=== PATIENT | female | born 1960 | race Caucasian/White ===

== ENCOUNTER 2016-09-03 16:59 | Emergency (ER) | payer SELFPAY ==
[2016-09-03 17:10] VITALS: O2SAT 94
--- NOTE | 2016-09-03 17:23 | ERPHSYRPT ---
- History of Present Illness Time Seen by Provider: 09/03/16 17:00 Source: patient Exam Limitations: no limitations Patient Subjective Stated Complaint: PT CO COUGH,PRODUCTIVE GREEN AT TIMES SINCE MAY OF LAST YEAR, FEVER OFF AND ON , SOB WITH EXCERITION Triage Nursing Assessment: PT ALERT,SKIN W/D PALE, RESP EASY, CONGESTED SOUNDING COUGH, Physician History: patietn with cough and hx of bronchitis for years; intermittant producton green ; fever low grade x 3 days; no sore throat; no cp or hemoptosis; no sob; no travel or known exposures; continues to smoke Timing/Duration: yesterday (fever), week(s) (cough), gradual onset, worse Fever Severity: moderate Fever Therapy [employer]GER: none Associated Symptoms: cough International travel in last 2 weeks: No Allergies/Adverse Reactions: Penicillins Allergy (Mild, Unverified 03/29/13 14:21) Home Medications: Albuterol Sulfate [Proair Hfa] 8.5 gm DAILY 09/03/16 [History] Hx Tetanus, Diphtheria Vaccination/Date Given: Yes (UNKNOWN) Hx Influenza Vaccination/Date Given: No Hx Pneumococcal Vaccination/Date Given: No Immunizations Up to Date: Yes - Review of Systems Constitutional: Fever, Malaise, No Weakness, No Weight Loss Eyes: No Symptoms Ears, Nose, & Throat: Tinnitus, No Ear Pain, No Ear Discharge, No Nose Congestion, No Sinus Drainage, No Throat Pain, No Hoarse, No Painful Swallowing Respiratory: Cough, No Cyanosis, No Dyspnea, No Dyspnea on Exertion (MCKAY), No Wheezing Cardiac: No Chest Pain, No Palpitations, No Syncope Abdominal/Gastrointestinal: No Abdominal Pain, No Nausea, No Vomiting, No Diarrhea Genitourinary Symptoms: No Symptoms Musculoskeletal: No Symptoms Skin: No Symptoms Neurological: No Symptoms Psychological: No Symptoms Endocrine: No Symptoms Hematologic/Lymphatic: No Symptoms Immunological/Allergic: No Symptoms - Past Medical History Pertinent Past Medical History: Yes Respiratory History: Bronchitis Other Medical History: recurrent bronchitis - Past Surgical History Past Surgical History: Yes Musculoskeletal: Other Female Surgical History: Tubal Ligation - Social History Smoking Status: Current every day smoker How long have you smoked: 30 Exposure to second hand smoke: Yes Alcohol Use: None Drug Use: none Patient Lives Alone: No Significant Family History: no pertinent family hx - Female History Hx Last Menstrual Period: POST Hx Now: No - Nursing Vital Signs Nursing Vital Signs: Initial Vital Signs Temperature 97.4 F Temperature Source Oral Pulse Rate 106 Respiratory Rate 18 Blood Pressure [Right Arm] 102/78 Pain Intensity 0 - Physical Exam General Appearance: mild distress, alert, thin Eye Exam: PERRL/EOMI, eyes nml inspection, No photophobia ENT Exam: normal ENT inspection, no apparent trauma, hearing grossly normal, TMs normal, pharynx normal Neck Exam: normal inspection, non-tender, supple, full range of motion, trachea midline, No JVD, No lymphadenopathy (R), No lymphadenopathy (L) Respiratory Exam: chest non-tender, lungs clear, no respiratory distress, no accessory muscle use, decreased breath sounds, No normal breath sounds, No respiratory distress, No crackles/rales, No rhonchi, No stridor, No wheezing, No pleural rub Cardiovascular/Chest Exam: normal heart sounds, regular rate/rhythm, murmur, normal peripheral pulses, tachycardia (106), No edema, No JVD Gastrointestinal/Abdominal Exam: soft, non tender, no mass, no organomegaly, normal bowel sounds Pelvic Exam: deferred Rectal Exam: deferred Extremity Exam: non-tender, normal range of motion, normal inspection, No no pedal edema, No calf tenderness, No eva's sign Neurologic Exam: alert, oriented x 3, cooperative, 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, normal mood/affect, nml cerebellar function, nml station & gait, sensation nml Skin Exam: normal color, warm, dry, No rash SpO2 Interpretation: normal SpO2: 94 Oxygen Delivery: Room Air - Course Nursing assessment & vital signs reviewed: Yes - Radiology Exams Chest X-ray Interpretation: Interpreted by me, No Pneumonia, No Pneumothorax, Nml Heart Size, No Infiltrates, Other (COPD) Ordered Tests: Active Orders 24 hr Category Date Time Status Pulse Oximetry (ED) STAT Care 09/03/16 17:18 Active CHEST 1 VIEW (PORTABLE) Stat Exams 09/03/16 17:18 Taken CBC W DIFF Stat Lab 09/03/16 17:43 Completed Lab/Rad Data: Laboratory Result Diagrams 09/03/16 17:43 Laboratory Results 09/03/16 Range/Units 17:43 WBC 12.3 H (4.0-10.5) K/mm3 RBC 4.45 (4.1-5.4) M/mm3 Hgb 13.6 (12.0-16.0) gm/dl Hct 41.2 (35-47) % MCV 92.6 (78-100) fl MCH 30.6 (26-32) pg MCHC 33.0 (32-36) g/dl RDW 12.8 (11.5-14.0) % Plt Count 320 (150-450) K/mm3 MPV 9.7 H (6-9.5) fl Gran % 76.7 H (36.0-66.0) % Lymphocytes % 11.8 L (24.0-44.0) % Monocytes % 10.0 (0.0-12.0) % Eosinophils % 1.3 (0.00-5.0) % Basophils % 0.2 (0.0-0.4) % Basophils # 0.02 (0-0.4) reviewed - Progress Progress: re-examined Progress Note: 09/03/16 17:23 cxr and lab pending; will recheck 09/03/16 18:23 recheck; results and tereatment plan discussed; instructions given Counseled pt/family regarding: lab results, diagnosis, need for follow-up, rad results, smoking cessation - Departure Time of Disposition: 18:23 Departure Disposition: Home Clinical Impression: Acute bronchitis Condition: Stable Critical Care Time: No Instructions: Cough -- Adult Additional Instructions: Follow-up with family doctor as directed. Call for appointment. Return if any problems. If you smoke please stop. Call or follow up with your family doctor for assistance if you need it to stop. Please wear your seatbelt when driving. Have a nice day. Thank you for allowing us to participate in your care today. :o) Dr Gilles Moreno Prescriptions: Sulfamethoxazole/Trimethoprim [Bactrim 400-80 mg Tablet] 1 each PO BID #20 tablet
[2016-09-03 17:44] LABS: BASOPHIL % 0.2 % (0.0-0.4); Eosinophil % 1.3 % (0.00-5.0); Granulocytes % 76.7 % (36.0-66.0); Lymphocytes % 11.8 % (24.0-44.0); Mean Cell Volume 92.6 fl (78-100); Mean Corpuscular Hemoglobin 30.6 pg (26-32); Mean Platelet Volume 9.7 fl (6-9.5); Platelet Count 320 K/mm3 (150-450); Red Blood Count 4.45 M/mm3 (4.1-5.4); Red Cell Distribution Width 12.8 % (11.5-14.0); White Blood Count 12.3 K/mm3 (4.0-10.5)
[2016-09-03 18:30] VITALS: BP 121/91; PULSE 100
--- NOTE | 2016-09-04 08:41 | XRAY ---
Indication: Productive cough. Comparison: August 23, 2012 Portable chest remains hyperinflated and clear. Heart and mediastinal structures stable and within normal limits. Bony thorax intact. Impression: Stable nonacute hyperinflated chest.
== END 2016-09-03 18:30 | disposition home or self-care (01) ==
LOC: ED 16:59
DX: J20.9 Acute bronchitis, unspecified (principal); J44.9 Chronic obstructive pulmonary disease, unspecified
CPT/HCPCS: 36415; 71010; 85025; 99283; 99284; 99285

== ENCOUNTER 2017-07-18 00:54 | Emergency (ER) | payer SELFPAY ==
[2017-07-18] MEDS ORDERED: DELTASONE 20 MG PO ONE (01:18)
[2017-07-18] MEDS ORDERED: DUONEB 0.5-3 MG/3 ml Neb IH ONE ×2 (01:18→01:21)
[2017-07-18] MEDS ORDERED: Vibramycin 100 MG PO ONE (01:18)
[2017-07-18] MEDS ORDERED: DELTASONE 20 MG ONE (01:22)
[2017-07-18] MEDS ORDERED: Vibramycin 100 MG ONE (01:22)
--- NOTE | 2017-07-18 01:22 | ERPHSYRPT ---
- History of Present Illness Time Seen by Provider: 07/18/17 01:10 Source: patient Exam Limitations: no limitations Patient Subjective Stated Complaint: cough and exertional SOB x 2 weeks.. hx bronchitis Triage Nursing Assessment: alert and oreiented. slight SOB after walking to room. slight wheeze ausclutated on expiration to right upper. cough non productive. denies fever, swelling. denies CP Physician History: 57 y/o female comes to the ER with complaints of cough, wheezing and mild shortness of breath for the last couple of days. Pt has used albuterol inhaler with no relief. Pt has had many episodes of bronchitis in the past. Pt denies any fever, chills, chest pain, dizziness or palpitations. Pt admits to still smoking. Timing/Duration: yesterday Cough Quality/Degree: moderate, dry cough Possible Cause: frequent episodes Allergies/Adverse Reactions: Penicillins Allergy (Mild, Verified 07/18/17 01:19) Hx Tetanus, Diphtheria Vaccination/Date Given: Yes (UNKNOWN) Hx Influenza Vaccination/Date Given: No Hx Pneumococcal Vaccination/Date Given: No Immunizations Up to Date: Yes - Review of Systems Constitutional: No Fever, No Chills Eyes: No Symptoms Ears, Nose, & Throat: No Symptoms Respiratory: Cough, Dyspnea, Wheezing Cardiac: No Chest Pain, No Edema, No Syncope Abdominal/Gastrointestinal: No Abdominal Pain, No Nausea, No Vomiting, No Diarrhea Genitourinary Symptoms: No Dysuria Musculoskeletal: No Back Pain, No Neck Pain Skin: No Rash Neurological: No Dizziness, No Focal Weakness, No Sensory Changes Psychological: No Symptoms Endocrine: No Symptoms All Other Systems: Reviewed and Negative - Past Medical History Pertinent Past Medical History: Yes Respiratory History: Bronchitis Other Medical History: recurrent bronchitis - Past Surgical History Past Surgical History: Yes Musculoskeletal: Other Female Surgical History: Tubal Ligation - Social History Smoking Status: Current every day smoker How long have you smoked: 30 Exposure to second hand smoke: No Alcohol Use: None Drug Use: none Patient Lives Alone: No Significant Family History: no pertinent family hx - Female History Hx Now: No - Nursing Vital Signs Nursing Vital Signs: Initial Vital Signs Temperature 97.8 F 07/18/17 00:57 Pulse Rate 78 07/18/17 00:57 Respiratory Rate 20 07/18/17 00:57 Blood Pressure 160/102 07/18/17 00:57 O2 Sat by Pulse Oximetry 95 07/18/17 00:57 Pain Scale Pain Intensity 0 - Physical Exam General Appearance: no apparent distress, alert, No mild distress Eye Exam: PERRL/EOMI, eyes nml inspection Ears, Nose, Throat Exam: normal ENT inspection, TMs normal, pharynx normal, moist mucous membranes Neck Exam: normal inspection, non-tender, supple, full range of motion Respiratory Exam: wheezing, No respiratory distress Cardiovascular Exam: regular rate/rhythm, normal heart sounds Gastrointestinal/Abdomen Exam: soft, No tenderness Back Exam: normal inspection, No CVA tenderness, No vertebral tenderness Extremity Exam: normal inspection, normal range of motion Neurologic Exam: alert, oriented x 3, cooperative, normal mood/affect, sensation nml, No motor deficits Skin Exam: normal color, warm, dry, No rash Lymphatic Exam: No adenopathy SpO2: 95 Oxygen Delivery: Room Air - Course Nursing assessment & vital signs reviewed: Yes Ordered Tests: Active Orders 24 hr Category Date Time Status Respiratory Nebulizer STAT RT 07/18/17 01:18 Completed Medication Summary Discontinued Medications Generic Name Dose Route Start Last Admin Trade Name Freq PRN Reason Stop Dose Admin Albuterol/Ipratropium 3 ml 07/18/17 01:18 07/18/17 01:30 Duoneb 0.5-3 Mg/3 Ml Neb IH 07/18/17 01:19 3 ml STAT ONE Administration Albuterol/Ipratropium Confirm 07/18/17 01:21 Duoneb 0.5-3 Mg/3 Ml Neb Administered 07/18/17 01:22 Dose 3 ml IH .STK-MED ONE Doxycycline Hyclate 100 mg 07/18/17 01:18 07/18/17 01:23 Vibramycin 100 Mg PO 07/18/17 01:19 100 mg STAT ONE Administration Doxycycline Hyclate Confirm 07/18/17 01:22 Vibramycin 100 Mg Administered 07/18/17 01:23 Dose 100 mg .ROUTE .STK-MED ONE Prednisone 60 mg 07/18/17 01:18 07/18/17 01:23 Deltasone 20 Mg PO 07/18/17 01:19 60 mg STAT ONE Administration Prednisone Confirm 07/18/17 01:22 Deltasone 20 Mg Administered 07/18/17 01:23 Dose 60 mg .ROUTE .STK-MED ONE - Progress Progress: improved Progress Note: 07/18/17 01:41 Pt feels better after receiving duoneb, prednisone and doxycycline. Pt has an albuterol inhaler and will be given prednisone and doxycycline for bronchitis - Departure Time of Disposition: 01:41 Departure Disposition: Home Clinical Impression: Bronchitis Condition: Stable Critical Care Time: No Referrals: FREDY BALDERAS MD [Primary Care Provider] - Instructions: Bronchitis Additional Instructions: Follow up with your primary care doctor if you should continue to have cough, congestion or wheezing. Prescriptions: Doxycycline Hyclate 100 mg [Vibramycin 100 MG] 100 mg PO BID #19 tab Prednisone 20 mg [Deltasone 20 mg] 20 mg PO DAILY #15 tablet
[2017-07-18 01:53] VITALS: BP 164/97; PULSE 80; O2SAT 96
== END 2017-07-18 02:15 | disposition home or self-care (01) ==
LOC: ED 00:54
DX: J40 Bronchitis, not specified as acute or chronic (principal); R06.02 Shortness of breath; R05 Cough
CPT/HCPCS: 94640; 99282; 99283; A9270-GY